=== PATIENT | female | born 1975 | race Caucasian/White ===

== ENCOUNTER → 2018-03-21 | Outpatient (CLI) | payer OTHER ==
[2015-02-18 06:00] VITALS: BP 106/70
--- NOTE | 2018-03-21 17:03 | KCIC ---
Bilateral digital screening mammograms with 3-D tomosynthesis: Reason for examination: Routine baseline screening. Bilateral mammograms in CC and oblique projections were obtained with 2-D imaging and 3-D tomosynthesis imaging on a Siemens Inspiration unit and reviewed on the workstation. Interpretation was made with the benefit of CAD. The skin and nipples show no abnormalities. No abnormal axillary lymph nodes are seen. The breast parenchyma shows scattered fatty and fibroglandular density. (Breast density: Category B.) There are no dominant masses, suspicious calcifications or architectural distortion. Impression: No evidence of malignancy. Recommend routine screening. BI-RAD Category 1: Negative. "Our facility is accredited by the [employer] Mammography [employer]." This patient's information has been entered into a reminder system for the patient to be notified with the results of her examination and a target date for the next mammogram. Electronically signed by: Ashley Reece MD (03/21/2018 5:00 PM) [id number]
== END | disposition home or self-care (01) ==
LOC: KCIC MAMMO 11:19
PROVIDERS: ATTEND Family Medicine
DX: Z12.31 Encounter for screening mammogram for malignant neoplasm of breast (principal)
CPT/HCPCS: 77063; 77067

== ENCOUNTER → 2018-04-02 | Outpatient (CLI) | payer OTHER ==
[2015-02-18 06:00] VITALS: BP 106/70
== END | disposition home or self-care (01) ==
LOC: SPEC 13:34
PROVIDERS: ATTEND Family Medicine
DX: Z12.4 Encounter for screening for malignant neoplasm of cervix (principal)
CPT/HCPCS: 88175

== ENCOUNTER → 2019-09-29 | Outpatient (CLI) | payer OTHER ==
[2015-02-18 06:00] VITALS: BP 106/70
--- NOTE | 2019-09-29 18:18 | KCIC ---
Bilateral digital screening mammograms with 3-D tomosynthesis: Reason for examination: Routine screening. Comparison is made to previous study dated 03/21/2018. Bilateral mammograms in CC and oblique projections were obtained with 2-D imaging and 3-D tomosynthesis imaging on a Siemens Inspiration unit and reviewed on the workstation. Interpretation was made with the benefit of CAD. The skin and nipples show no abnormalities. No abnormal axillary lymph nodes are seen. The breast parenchyma shows scattered fatty and fibroglandular density. (Breast density: Category B.) There is a small nodular parenchymal density seen inferiorly on the right oblique view but not identified on the tomographic images. This may represent a skin lesion. There are no other dominant masses, suspicious calcifications or architectural distortion. Impression: Small nodular parenchymal density seen inferiorly on the right oblique view only. This may represent a skin lesion. Recommend clinical correlation and follow-up with ultrasound. BI-RADS Category 0: Incomplete. Needs additional imaging evaluation. "Our facility is accredited by the [employer] Mammography [employer]." This patient's information has been entered into a reminder system for the patient to be notified with the results of her examination and a target date for the next mammogram. Electronically signed by: Ashley Reece MD (09/29/2019 6:15 PM) [id number]
== END ==
LOC: KCIC MAMMO 13:47
PROVIDERS: ATTEND Family Medicine
DX: Z12.31 Encounter for screening mammogram for malignant neoplasm of breast (principal); N63.10 Unspecified lump in the right breast, unspecified quadrant
CPT/HCPCS: 77063; 77067

== ENCOUNTER → 2019-10-09 | Outpatient (CLI) | payer OTHER ==
[2015-02-18 06:00] VITALS: BP 106/70
--- NOTE | 2019-10-09 11:03 | RAD ---
DATE: 10/09/2019 10:13 AM EXAM: BREAST RIGHT HISTORY: Screening recall for nodular asymmetry in the inferior right breast COMPARISON: 09/29/2019 TECHNIQUE: Targeted ultrasound of the inferior right breast was performed with grayscale and color Doppler imaging FINDINGS: Targeted ultrasound of the inferior right breast identifies at the 6:00 position 7 cm from the nipple an 8 mm hypoechoic parallel orientation circumscribed skin lesion at the patient recognizes as a pimple that is gradually decreasing in size. Otherwise no nodular masses in the right breast are identified in the area of interest.. IMPRESSION: Benign sonographic findings compatible with a skin lesion in the inferior right breast. Recommend clinical management which may include biopsy if it is clinically suspicious. In the absence of any clinically suspicious findings, return to screening recommended. BI-RADS CATEGORY: 2 BENIGN FINDING(S) RECOMMENDED FOLLOW-UP: 12M 12 MONTH FOLLOW-UP Annual screening mammography is recommended, unless clinically indicated sooner based on symptoms or change in physical exam.
== END | disposition home or self-care (01) ==
LOC: US 10:05
PROVIDERS: ATTEND Family Medicine
DX: R92.2 Inconclusive mammogram (principal)
CPT/HCPCS: 76641

== ENCOUNTER → 2020-06-08 | Outpatient (CLI) | payer OTHER ==
[2015-02-18 06:00] VITALS: BP 106/70
[2020-06-08 09:22] LABS: BASO % 1 % (0-3); EOS # 0.1 x10^3/uL (0.0-0.7); EOS % 2 % (0-3); HEMATOCRIT 36.8 % (36.0-47.0); HEMOGLOBIN 12.2 g/dL (12.0-15.5); LYMPH # 1.7 x10^3/uL (1.0-4.8); LYMPH % 26 % (24-48); MEAN CORPUSCULAR HEMOGLOBIN 27 pg (25-35); MEAN CORPUSCULAR HGB CONC 33 g/dL (31-37); MEAN CORPUSCULAR VOLUME 80 fL (79-100); MONO # 0.3 x10^3/uL (0.0-1.1); MONO % 5 % (0-9); NEUT # 4.3 x10^3/uL (1.8-7.7); NEUT % 66 % (31-73); PLATELET COUNT 234 x10^3/uL (140-400); RED BLOOD COUNT 4.59 x10^6/uL (3.50-5.40); RED CELL DISTRIBUTION WIDTH 14.6 % (11.5-14.5); WHITE BLOOD COUNT 6.4 x10^3/uL (4.0-11.0)
[2020-06-08 09:35] LABS: ALBUMIN 3.6 g/dL (3.4-5.0); CALCIUM 8.2 mg/dL (8.5-10.1); CREATININE 0.7 mg/dL (0.6-1.0); GFR 91.8; POTASSIUM 3.8 mmol/L (3.5-5.1); TOTAL BILIRUBIN 0.4 mg/dL (0.2-1.0); TOTAL PROTEIN 7.2 g/dL (6.4-8.2)
[2020-06-08 09:36] LABS: CHOLESTEROL/HDL RATIO 4.7
== END ==
LOC: LAB 08:14
PROVIDERS: ATTEND Nurse Practitioner
DX: E78.2 Mixed hyperlipidemia (principal)
CPT/HCPCS: 36415; 80053; 80061; 84443; 85025

== ENCOUNTER → 2020-10-25 | Outpatient (CLI) | payer OTHER ==
[2015-02-18 06:00] VITALS: BP 106/70
--- NOTE | 2020-10-25 14:31 | KCIC ---
Bilateral digital screening mammograms with 3-D tomosynthesis: Reason for examination: Routine screening. Comparison is made to previous studies dated 09/29/2019 and 03/21/2018. Bilateral mammograms in CC and oblique projections were obtained with 2-D imaging and 3-D tomosynthes is imaging on a Siemens Inspiration unit and reviewed on the workstation. Interpretation was made wit h the benefit of CAD. The skin and nipples show no abnormalities. No abnormal axillary lymph nodes are seen. The breast par enchyma shows scattered fatty and fibroglandular density. (Breast density: Category B.) There are no dominant masses, suspicious calcifications or architectural distortion. Impression: No evidence of malignancy. Recommend routine screening. BI-RAD Category 1: Negative. "Our facility is accredited by the [employer] Mammography [employer]." This patient's information has been entered into a reminder system for the patient to be notified wit h the results of her examination and a target date for the next mammogram. Electronically signed by: Ashley Reece MD (10/25/2020 2:29 PM) [id number]
== END ==
LOC: KCIC MAMMO 12:23
PROVIDERS: ATTEND Family Medicine
DX: Z12.31 Encounter for screening mammogram for malignant neoplasm of breast (principal)
CPT/HCPCS: 77063; 77067